=== PATIENT | male | born 1975 | race Caucasian/White ===

== ENCOUNTER 2018-11-20 20:03 | Emergency (ER) | payer SELFPAY ==
[~2018-11-20] VITALS: Ht 172.7 cm; Wt 84.0 kg
[~2018-11-20 20:03] MED LIST: LITH300C PO
[2018-11-20] MEDS ORDERED: PROM12.512 PO (20:59)
[2018-11-20] MEDS ORDERED: CHLO25CA10 PO (20:59)
[2018-11-20] MEDS ORDERED: folic acid 1mg tablet PO ONE (21:00)
[2018-11-20] MEDS ORDERED: magnesium oxide 400mg tablet PO ONE (21:00)
[2018-11-20] MEDS ORDERED: proMETHazine 25mg tablet PO ONE (21:00)
[2018-11-20] MEDS ORDERED: thiamine 100mg tablet PO ONE (21:00)
[2018-11-20] MEDS ORDERED: chlordiazePOXIDE 25mg capsule PO ONE (21:00)
[2018-11-20 21:09] VITALS: BP 121/81
== END 2018-11-20 21:12 | disposition home or self-care (01) ==
LOC: ER 20:03
DX: F10.239 Alcohol dependence with withdrawal, unspecified (principal); F41.9 Anxiety disorder, unspecified; F17.200 Nicotine dependence, unspecified, uncomplicated; F12.90 Cannabis use, unspecified, uncomplicated; Z79.899 Other long term (current) drug therapy; Y90.9 Presence of alcohol in blood, level not specified
CPT/HCPCS: 93005; 99284; Q0169

== ENCOUNTER 2024-01-04 18:13 | Emergency (ER) | payer MEDICAID ==
[~2024-01-04] VITALS: Ht 172.7 cm; Wt 82.1 kg
[~2024-01-04 18:13] MED LIST changes: +CHLO25CA10 PO; +PROM12.512 PO
[2024-01-04 19:34] LABS: BILIRUBIN,URINE NEGATIVE (Neg); CLARITY,URINE CLEAR (Clear); COLOR,URINE STRAW (Yellow); GLUCOSE, URINE NEGATIVE (Neg); KETONES,URINE NEGATIVE (Neg); LEUKOCYTE ESTERASE ,URINE NEGATIVE (Neg); NITRITES, URINE NEGATIVE (Neg); OCCULT BLOOD,URINE NEGATIVE (Neg); PROTEIN,URINE NEGATIVE (Neg); UROBILINOGEN,URINE 0.2 E.U/dL (0.2-1.0)
[2024-01-04] MEDS: normal saline 1000ml 1,000 ML IV ONE ×2 (19:34→21:45)
[2024-01-04 19:37] LABS: UA COLLECTION TYPE CLN CATCH MIDSTREAM
[2024-01-04 19:40] LABS: BASOPHILS # (AUTO) 0.1 X10'3 (0-0.2); BASOPHILS % (AUTO) 0.7 % (0-1); EOSINOPHILS # (AUTO) 0.2 X10'3 (0-0.9); EOSINOPHILS % (AUTO) 2.8 % (0-6); HEMATOCRIT 51.9 % (42.0-52.0); HEMOGLOBIN 17.3 g/dl (14.0-17.9); LYMPHOCYTES # (AUTO) 2.9 X10'3 (1.1-4.8); LYMPHOCYTES % (AUTO) 38.9 % (21-51); MEAN CORPUSCULAR HGB CONC 33.3 g/dL (33.0-36.5); MEAN PLATELET VOLUME 7.7 FL (7.4-10.4); MONOCYTES % (AUTO) 13.3 % (2-12); NEUTROPHILS # (AUTO) 3.3 X10'3 (1.8-7.7); NEUTROPHILS % (AUTO) 44.3 % (42-75); PLATELET COUNT 219 X10'3 (140-440); RED CELL DISTRIBUTION WIDTH 15.1 % (11.5-14.5); WHITE BLOOD COUNT 7.6 X10'3 (4.5-11.0)
[2024-01-04 19:43] LABS: URINE AMPHETAMINE SCREEN NEGATIVE (Neg); URINE BARBITUATE SCREEN NEGATIVE (Neg); URINE BENZODIAZEPINES SCREEN NEGATIVE (Neg); URINE CANNABINOID SCREEN NEGATIVE (Neg); URINE COCAINE SCREEN NEGATIVE (Neg); URINE METHADONE SCREEN NEGATIVE (Neg); URINE OPIATE SCREEN NEGATIVE (Neg); URINE PHENCYCLIDINE SCREEN NEGATIVE (Neg)
[2024-01-04 19:51] LABS: ALBUMIN 3.6 G/DL (3.4-5.0); ANION GAP 11 (8-16); BLOOD UREA NITROGEN 6 MG/DL (7-18); BUN/CREATININE RATIO 6.7 (10.0-20.0); CHLORIDE 105 MMOL/L (99-107); CREATININE 0.89 MG/DL (0.60-1.10); ETHANOL 227 MG/DL (<10); GLUCOSE 89 MG/DL (70-104); POTASSIUM 3.8 MMOL/L (3.5-5.1); SALICYLATE 2.4 MG/DL (4.0-20.0); SODIUM 142 MMOL/L (135-145); TOTAL CARBON DIOXIDE 25.7 MMOL/L (24-32); eCRCL 98 ML/MIN; eGFR > 90 ML/MIN
[2024-01-04 20:00] LABS: ACETAMINOPHEN < 2.0 UG/ML (10-30)
[2024-01-04] MEDS: thiamine 100mg/ml 2ml inj. IV ONE (20:03)
[2024-01-04 22:32] VITALS: BP 138/68; PULSE 89; RESP 18; TEMP 98.5; O2SAT 98
== END 2024-01-04 22:38 | disposition home or self-care (01) ==
LOC: ER 18:13
DX: F10.129 Alcohol abuse with intoxication, unspecified (principal); Z20.822 Contact with and (suspected) exposure to COVID-19; F41.9 Anxiety disorder, unspecified; F12.90 Cannabis use, unspecified, uncomplicated; Z79.899 Other long term (current) drug therapy; Y90.9 Presence of alcohol in blood, level not specified
CPT/HCPCS: 36415; 80048; 80305; 80320; 80329; 81003; 85025; 87811; 96361; 96374; 99283; J3411; J7030